=== PATIENT | male | born 1995 | race Caucasian/White ===

== ENCOUNTER 2018-01-28 18:43 | Emergency (ER) | payer SELFPAY ==
[~2018-01-28] VITALS: Ht 188 cm; Wt 70.8 kg
[2018-01-28 18:53] VITALS: BP_SYST 128
--- NOTE | 2018-01-28 19:28 | NUR ---
Informed by Tika, Ac/Dc Rewinder, the pt chose to [facility].
== END 2018-01-28 19:28 | disposition left against medical advice (07) ==
LOC: SED 18:43
DX: S61.011A Laceration without foreign body of right thumb without damage to nail, initial encounter (principal); Z53.21 Procedure and treatment not carried out due to patient leaving prior to being seen by health care provider; X58.XXXA Exposure to other specified factors, initial encounter; Y93.89 Activity, other specified; Y92.89 Other specified places as the place of occurrence of the external cause; Y99.8 Other external cause status